=== PATIENT | female | born 1995 | race Caucasian/White ===

== ENCOUNTER 2022-02-03 23:43 | Emergency (ER) | payer MEDICAID ==
[~2022-02-03] VITALS: Ht 167.6 cm; Wt 82.0 kg
[2022-02-04] MEDS ORDERED: HYDROCODONE/ACETAMINOPHEN 10/325MG TABLET PO ONE (00:15)
[2022-02-04] MEDS ORDERED: IBUPROFEN 600MG TABLET PO ONE (00:15)
[2022-02-04 02:40] VITALS: BP 123/53
[2022-02-04] MEDS ORDERED: IBUP-2029 MT (02:48)
[2022-02-04] MEDS ORDERED: HYDROCODONE/ACETAMINOPHEN 5/325MG TABLET PO ONE (03:00)
== END 2022-02-04 04:22 | disposition home or self-care (01) ==
LOC: ER 23:43
DX: S82.291A Other fracture of shaft of right tibia, initial encounter for closed fracture (principal); S82.491A Other fracture of shaft of right fibula, initial encounter for closed fracture; W10.8XXA Fall (on) (from) other stairs and steps, initial encounter; Y93.89 Activity, other specified; Y92.39 Other specified sports and athletic area as the place of occurrence of the external cause
CPT/HCPCS: 29515; 73590; 73610; 73630; 99284